=== PATIENT | female | born 1985 | race Caucasian/White ===

== ENCOUNTER 2017-07-01 19:20 | Emergency (ER) | payer MEDICAID, OTHER ==
[~2017-07-01] VITALS: Ht 167.6 cm; Wt 65.8 kg
[2017-07-01 19:35] VITALS: BP_SYST 110
--- NOTE | 2017-07-01 23:00 | NUR ---
Called patient for ER bed placement. Patient not in ER waiting room, hallway or restroom. & harjit aware.
--- NOTE | 2017-07-01 23:01 | NUR ---
Note christiano in ED - 07/01/17 at 2354 by ALYSSA Patient to bed 7 to [facility] for evaluation. Side rails up. Report given to Ana Lilia HALL
--- NOTE | 2017-07-01 23:05 | NUR ---
Called patient for ER bed placement. Patient not in ER waiting room, hallway or restroom.
--- NOTE | 2017-07-01 23:15 | NUR ---
Patient left without being seen.
== END 2017-07-01 23:15 | disposition left against medical advice (07) ==
LOC: SED 19:20
DX: H44.003 Unspecified purulent endophthalmitis, bilateral (principal); Z53.21 Procedure and treatment not carried out due to patient leaving prior to being seen by health care provider

== ENCOUNTER 2017-07-02 09:30 | Emergency (ER) | payer MEDICAID ==
[~2017-07-02] VITALS: Ht 167.6 cm; Wt 65.8 kg
[2017-07-02 09:38] VITALS: BP_SYST 112
--- NOTE | 2017-07-02 09:41 | NUR ---
Pt to bed 6
--- NOTE | 2017-07-02 09:45 | NUR ---
Pt presents to ED c/o neck pain and sore throat. Pt has no med hx.
--- NOTE | 2017-07-02 09:46 | NUR ---
ER at bedside examining patient.
[2017-07-02 10:15] VITALS: BP_SYST 118
--- NOTE | 2017-07-02 10:15 | NUR ---
Patient given written and verbal discharge instructions and verbalizes understanding. ER MD discussed with patient the results and treatment provided. Patient in stable condition. ID arm band removed. Rx of Motrin,Azithromycin, Benadryl given. Patient educated on pain management and to follow up with PMD. Pain Scale 2. Opportunity for questions provided and answered.
== END 2017-07-02 10:15 | disposition home or self-care (01) ==
LOC: SED 09:30
DX: J40 Bronchitis, not specified as acute or chronic (principal)
CPT/HCPCS: 99283

== ENCOUNTER 2018-07-17 23:48 | Emergency (ER) | payer MEDICAID ==
[~2018-07-17] VITALS: Ht 167.6 cm; Wt 59.9 kg
[2018-07-18 00:22] VITALS: BP_SYST 97
[2018-07-18 00:51] VITALS: BP_SYST 102
== END 2018-07-18 00:51 | disposition home or self-care (01) ==
LOC: SED 23:48
DX: S80.862A Insect bite (nonvenomous), left lower leg, initial encounter (principal); E78.5 Hyperlipidemia, unspecified; W57.XXXA Bitten or stung by nonvenomous insect and other nonvenomous arthropods, initial encounter; Y93.89 Activity, other specified; Y92.89 Other specified places as the place of occurrence of the external cause; Y99.8 Other external cause status
CPT/HCPCS: 99283

== ENCOUNTER 2019-10-19 15:26 | Emergency (ER) | payer OTHER, MEDICAID ==
[~2019-10-19] VITALS: Ht 167.6 cm; Wt 61.2 kg
[2019-10-19 15:30] VITALS: BP_SYST 137
--- NOTE | 2019-10-19 15:35 | NUR ---
Patient triaged and placed in waiting room. VSS and patient appears in no acute distress at this time. Accompanied by SELF, awaiting available bed, and MD notified of need for MSE.
--- NOTE | 2019-10-19 17:04 | NUR ---
BROUGHT BACK TO BED #7 AND REPORT GIVEN TO PEPITO
--- NOTE | 2019-10-19 17:16 | NUR ---
PATIENT PRESENTS TO THE ER WITH HX OF TRAUMA TO RIGHT #4 DIGIT DISTAL MEDIALLY TWO HOURS AGO WHILE GRASPING RECYCLING MATERIAL; PATIENT STATES A PIECE OF SHARP GLASS CUT HER FINGER; NO OTHER TRAUMA, OTHER REMARKABLE S/S; ERMD EVALUATION AT 1710 AND PATIENT TO ER #7 AT 1700
--- NOTE | 2019-10-19 17:50 | NUR ---
ER at bedside examining patient.
--- NOTE | 2019-10-19 17:55 | NUR ---
bedside performing skin adhesive repair of laceration to digit. Wound cleaned and repaired.
[2019-10-19 18:30] VITALS: BP_SYST 130
--- NOTE | 2019-10-19 18:30 | NUR ---
Patient given written and verbal discharge instructions and verbalizes understanding. ER MD discussed with patient the results and treatment provided. Patient in stable condition. ID arm band removed. No IV Rx of Prednisone, Motrin given. Patient educated on pain management and to follow up with PMD. Pain Scale 0/10. Opportunity for questions provided and answered. Medication side effect fact sheet provided.
== END 2019-10-19 18:30 | disposition home or self-care (01) ==
LOC: SED 15:26
DX: S61.214A Laceration without foreign body of right ring finger without damage to nail, initial encounter (principal); E78.5 Hyperlipidemia, unspecified; X58.XXXA Exposure to other specified factors, initial encounter; Y93.89 Activity, other specified; Y92.89 Other specified places as the place of occurrence of the external cause; Y99.8 Other external cause status
CPT/HCPCS: 99283

== ENCOUNTER 2020-04-19 13:10 | Emergency (ER) | payer MEDICAID, OTHER ==
[~2020-04-19] VITALS: Ht 167.6 cm; Wt 61.2 kg
[2020-04-19 13:20] VITALS: BP_SYST 139
--- NOTE | 2020-04-19 13:20 | NUR ---
Dr Lora evaluating patient at triage room
--- NOTE | 2020-04-19 13:22 | NUR ---
Pt brought by self, A&Ox4, pt presents to ER with urinary pain and frequency, pt afebrile, skin pink and warm, cap refill <3
[2020-04-19 14:11] LABS: BILIRUBIN,URINE NEGATIVE (NEGATIVE); BLOOD, URINE 3+ (NEGATIVE); CLARITY/URINE CLOUDY (CLEAR); COLOR,URINE YELLOW (YELLOW); GLUCOSE,URINE NEGATIVE (NEGATIVE); KETONES,URINE NEGATIVE (NEGATIVE); LEUKOCYTE ESTERASE ,URINE 3+ (NEGATIVE); NITRITE, URINE NEGATIVE (NEGATIVE); PROTEIN URINE 2+ (NEGATIVE); UROBILINOGEN,URINE 0.2 (0.2-1.0)
--- NOTE | 2020-04-19 14:50 | NUR ---
Patient given written and verbal discharge instructions and verbalizes understanding. ER MD discussed with patient the results and treatment provided. Patient in stable condition. ID arm band removed. Rx of Pyridium and Macrobid given. Patient educated on pain management and to follow up with PMD. Pain Scale 2/10 tolerable for patient. Opportunity for questions provided and answered. Medication side effect fact sheet provided.
[2020-04-19 15:01] LABS: RBC,URINE 50-80 /HPF (0-3)
[2020-04-19 15:02] LABS: BACTERIA,URINE MODERATE /HPF (None Seen)
[2020-04-19 15:07] VITALS: BP_SYST 139
== END 2020-04-19 14:50 | disposition home or self-care (01) ==
LOC: SED 13:10
DX: N39.0 Urinary tract infection, site not specified (principal); E78.5 Hyperlipidemia, unspecified
CPT/HCPCS: 81000-TC; 87086; 99283